=== PATIENT | female | born 1940 | race Caucasian/White ===

== ENCOUNTER → 2017-02-15 | Day surgery (SDC) | payer OTHER ==
[~2017-02-15] MED LIST: AMLODIPINE-BEN1 EAC1 PO; ANTIVERT PO; ASPIRIN PO; ASPIRIN81 M1 PO; ASPIRIN81 M2 PO; CERTAGEN PO; LEVAQUIN PO; LOTREL 5/10 MG1 CAP PO; MULTIPLE VITAM1 EAC1 PO; NEXIUM PO; OMEPRAZOLE40 M1 PO; PATIENT'S PHARMACY; PRAVACHOL PO; PRAVACHOL20 MG PO; TIMOPTIC5 ML OU; ZITHROMAX; [UNRECOGNIZED DRUG - REMARK]
--- NOTE | ~2017-02-15 | OR ---
Unit #: [id number] #: [id number] Patient: USHA AGUILAR [id number] [address] [place], [place] [address] [id number] O MR#: [id number] NAME: USHA AGUILAR. ROOM: Date of Procedure: 02/15/2017 Admission Date: 02/15/2017 Surgeon: Avni Interiano M.D. : 1940 Attending Physician: Avni Interiano M.D. Primary Care Physician: Sunil Garcia Jr., M.D. OPERATIVE REPORT PROCEDURE PERFORMED Colonoscopy with snare polypectomy. INDICATIONS FOR PROCEDURE Average risk for colorectal cancer. MEDICATIONS Monitored anesthesia. POSTOPERATIVE FINDINGS 1. 6 to 7 mm polyp, ascending colon, snared and sent for pathology. 2. Rest of the exam to cecum was normal. PLAN Follow up on pathology report. Repeat colonoscopy in 5 years. DESCRIPTION OF PROCEDURE The patient was explained of the procedure, risks, and benefits along with the risks and benefits of anesthesia. She was brought to the endoscopy room. Propofol anesthesia was given. Rectal exam was done, which was normal. Colonoscope was lubricated, passed up the rectum, advanced under direct vision all the way to the cecum. Cecum was identified by ileocecal valve and appendiceal orifice. I then started to pull the scope out carefully looking. Polyp seen in the ascending colon was snared and sent for histopathology. I retroflexed in the rectum. Small hemorrhoids seen. Scope was gently pulled out. She tolerated it well. Dictated by... Romi Trujillo/patrick TD: 02/16/2017 01:35 JOB #: [id number] Unit #: [id number] #: [id number] Patient: USHA AGUILAR OPERATIVE REPORT Page 1 of 1 X Avni Interiano MD X PROCEDURE OPERATIVE NOTE
== END | disposition home or self-care (01) ==
LOC: COPS 11:20
DX: Z12.11 Encounter for screening for malignant neoplasm of colon (principal); D12.2 Benign neoplasm of ascending colon; K21.9 Gastro-esophageal reflux disease without esophagitis; I10 Essential (primary) hypertension
CPT/HCPCS: 88305

== ENCOUNTER → 2017-03-29 | Outpatient (CLI) | payer OTHER ==
--- NOTE | ~2017-03-29 | MY29 ---
[facility] A Service of [facility] RADIOLOGY TEXT RESULTS PATIENT: USHA AGUILAR BA LOCATION: [facility] : 38 UNIT #: [id number] AGE: [address]: Sunil Garcia MD SEX: F ORDER DR: [id number] [facility] [address] [place], [place] [address] [id number] O MR#: [id number] #: [id number] NAME: USHA AGUILAR : 1940 SEX: F STUDY DATE/TIME: 03/29/2017 11:09 UNIT: [facility] ROOM: STUDY DESCRIPTION: MY [facility] SCREENING W/ CAD BILAT Attending Physician: Sunil Garcia Jr., M.D. Ordering Physician: Sunil Garcia Jr., M.D. Primary Care Physician: Sunil Garcia Jr., M.D. MEDICAL IMAGING REPORT This report is preliminary unless electronic signature is present EXAM Digital screening mammogram 03/29/2017 HISTORY 77-year-old woman. Positive family history, grandmother. Annual screen. COMPARISON Mammograms date to 07/19/2006 with most recent 09/21/2010. FINDINGS Digital imaging of each breast was completed utilizing screening protocol. Review includes FDA-approved CAD device. Breast parenchyma is partially fatty replaced and stable. There is no interval occurring mass. There are no suspicious microcalcifications and no architectural distortion. IMPRESSION Negative mammogram. Annual screening recommended. Patient's over the age of 40 are entered into a reminder system with target due date for the next mammogram. BIRADS: 1 Negative Dictated by... Armani Chopra M.D. THIS IS AN ELECTRONICALLY VERIFIED REPORT Armani Chopra M.D. at 03/29/2017 1:56 PM BRAD/damaris TD: 03/29/2017 13:00 [facility] A Service of [facility] RADIOLOGY TEXT RESULTS PATIENT: USHA AGUILAR BA LOCATION: [facility] : 38 UNIT #: [id number] AGE: [address]: Sunil Garcia MD SEX: F ORDER DR: JOB #: [id number] MEDICAL IMAGING REPORT Page 1 of 1 COPY
== END | disposition home or self-care (01) ==
LOC: CWCC 10:45
DX: Z12.31 Encounter for screening mammogram for malignant neoplasm of breast (principal); Z80.3 Family history of malignant neoplasm of breast
CPT/HCPCS: G0202